=== PATIENT | female | born 1995 | race Caucasian/White ===

== ENCOUNTER 2017-08-30 06:44 | Emergency (ER) | payer OTHER ==
[2017-08-29] MEDS: KETOROLAC 30 MG/1 ML IVPush ONE (07:30)
[~2017-08-30] VITALS: Ht 162.6 cm; Wt 58.5 kg
[2017-08-30] MEDS ORDERED: LORazepam 2 MG/ML, 1ML ONE (07:15)
[2017-08-30] MEDS ORDERED: DIPHENHYDRAMINE 50 MG/ML, 1ML ONE (07:16)
[2017-08-30] MEDS ORDERED: KETOROLAC 30 MG/1 ML ONE (07:16)
[2017-08-30] MEDS ORDERED: METOCLOPRAMIDE 5 MG/ML, 2ML ONE (07:16)
[2017-08-30 07:19] LABS: HEMATOCRIT 42.8 % (34.6-47.8); HEMOGLOBIN 14.5 g/dL (11.7-16.4); WHITE BLOOD COUNT 9.6 x10^3/uL (3.4-10)
[2017-08-30] MEDS: DIPHENHYDRAMINE 50 MG/ML, 1ML IVPush ONE (07:23)
[2017-08-30] MEDS: LORazepam 2 MG/ML, 1ML IVPush ONE (07:23)
[2017-08-30] MEDS: METOCLOPRAMIDE 5 MG/ML, 2ML IVPush ONE (07:24)
[2017-08-30] MEDS: SODIUM CHLORIDE 0.9% 1,000ML IVBOLUS ONE ×2 (07:24→09:43)
[2017-08-30] MEDS: SODIUM CHLORIDE FLUSH 10ML SYR IVF ONE (07:25)
[2017-08-30 07:31] LABS: BLOOD UREA NITROGEN 11 mg/dL (7-18)
[2017-08-30] MEDS ORDERED: ONDANSETRON 2MG/ML, 2ML ONE (09:28)
[2017-08-30] MEDS: ONDANSETRON 2MG/ML, 2ML IVPush ONE (09:31)
[2017-08-30 09:35] VITALS: BP 113/75
[2017-08-30] MEDS ORDERED: PROCHLORPERAZINE 5 MG/ML, 2ML ONE (09:36)
[2017-08-30] MEDS: PROCHLORPERAZINE 5 MG/ML, 2ML IVPush ONE (09:44)
== END 2017-08-30 11:30 | disposition home or self-care (01) ==
LOC: ED 10:11
DX: G43.109 Migraine with aura, not intractable, without status migrainosus (principal)
CPT/HCPCS: 36415; 70450; 80048; 81003; 82040; 84703; 85025; 93005; 96361; 96374; 96375; 99285; J0780; J1200; J1885; J2060; J2405; J2765; J7030

== ENCOUNTER 2019-04-08 10:26 | Emergency (ER) | payer OTHER ==
[~2019-04-08] VITALS: Ht 162.6 cm; Wt 57.0 kg
[2019-04-08 12:06] VITALS: BP 105/51
== END 2019-04-08 12:08 | disposition home or self-care (01) ==
LOC: ED 12:02
DX: G43.509 Persistent migraine aura without cerebral infarction, not intractable, without status migrainosus (principal)
CPT/HCPCS: 96374; 96375; 99283; J0780; J1200; J1885; J2405; J7030